=== PATIENT | female | born 1975 | race Caucasian/White ===

== ENCOUNTER 2016-08-14 00:35 | Inpatient (IN) | payer MEDICAID ==
[2016-08-14] MEDS ORDERED: ADENOSINE 6 MG/2 ML SYR IV ONE ×2 (00:56)
[2016-08-14] MEDS ORDERED: SODIUM CHLORIDE 0.9% 10 ML FLUSH FLUSH PRN (00:56)
--- NOTE | 2016-08-14 01:09 | EDPRACDOC ---
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 C/o sob. Denies fever, cough, congestion, cp, abd pain, n/v, changes in bowel or bladder, rash. Pt states her anxiety is increased due to in family Symptoms Started: Reports: Suddenly Relevant History: Reports: Thyroid disease Heart Rate (bpm): 180 Pulse is: Rapid Worsens with: Reports: Anxiety Associated signs & symptoms: Reports: Dyspnea Chest Pain Location: Reports: No Pain Pain Quality: Reports: None Pain Radiation: Reports: None ED Past Medical History - History Reviewed Yes Nurses notes reviewed and agree except as marked - Patient Medical History Surgical History: Reports: Cholecystectomy - Social Medical History Smoking Status: Heavy tobacco smoker (5 or more cigarettes/day or daily pipe/ cigar) ETOH: None Substance Abuse: None EDM Review of Systems - Review of Systems Constitutional: No Symptoms Reported. negative: Fever, Chills, Weakness, Fatigue, Loss of Appetite Ears: No Symptoms Reported. negative: Pain, Hearing Loss, Drainage, Ear Pulling Throat: No Symptoms Reported. negative: Pain, Swelling Nose: No Symptoms Reported. negative: Congestion, Bleeding, Discharge, Injection, Swelling, Deformity, Ecchymosis, Tender, Abrasion, Laceration Mouth: No Symptoms Reported. negative: Pain, Drooling Respiratory: Shortness of Breath Cardiovascular: Palpitations Gastrointestinal: No Symptoms Reported. negative: Pain, Constipation, Nausea, Vomiting, Diarrhea, Melena, Formula Intolerance Genitourinary: No Symptoms Reported. negative: Dysuria, Hematuria, Frequency, Discharge, Bleeding, Testicular Pain, Neurological: No Symptoms Reported. negative: Headache, Dizziness, Seizure, Numbness, Weakness, Speech Difficulty, Gait Difficulty Musculoskeletal: No Symptoms Reported. negative: Neck, Chestwall, Ribs, Back, Shoulder, Arm, Elbow, Forearm, Wrist, Hand, Pelvis, Hip, Femur, Knee, Leg, Ankle , Foot Integumentary: No Symptoms Reported. negative: Itching, Rash, Bruising, Wound Allergic/Immunologic: No Symptoms Reported. negative: Hives, Itching Hematologic: No Symptoms Reported. negative: Lymphadenopathy, Easy Bruising, Easy Bleeding Psychiatric: Anxiety, Insomnia. negative: Depression, Hallucinations, Suicidal - Physical Exam Constitutional: Alert, Distress (mild) Oriented to: Time, Person, Place Last recorded Vital Signs: Oxygen Pulse Oxygen Saturation O2 Device Oxygen Flow Rate Fraction of Inspired Oxygen ( FIO2) - HEENT Head: Normal ( normocephalic) Eye Exam: Normal (PERRL, EOMI, Sclera white) Neck: Normal (FROM, trachea at midline) - Respiratory/Cardiovascular Respiratory: Normal - CTA (BBS clear to auscultation without adventitious sounds ) Cardiovascular: Tachycardia - GI Auscultation: Normal (NABS) Palpation: Normal (Soft,No rebound or guarding, non distended) Tenderness: Non tender - Musculoskeletal Back: Normal (Non-Tender) Extremities: Normal (Normal tone, Pulses 2+ No cyanosis or edema, FROM) - Integumentary Skin: Normal, Warm, Dry Lymphatics: Normal (no adenopathy) - Neurologic Memory Impaired: Normal Motor Function: Normal (Normal tone, Pulses 2+ No cyanosis or edema, FROM) Mood Description: Anxious Perception: Normal - Differential Diagnosis PSVT, Sinus tachycardia, Anxiety/Panic attack - Results 08/14/16 01:00 08/14/16 01:00 08/14/16 03:30 Laboratory Results - last 24 hr 08/14/16 08/14/16 08/14/16 01:00 01:00 01:00 WBC 11.3 H RBC 5.15 Hgb 15.4 Hct 46.9 MCV 91 MCH 29.9 MCHC 32.9 L RDW 14.5 Plt Count 337 MPV 7.7 Neut % (Auto) 64.6 Lymph % (Auto) 25.8 [place] % (Auto) 7.9 Eos % (Auto) 0.8 Baso % (Auto) 0.9 Absolute Neuts (auto) 7.23 Absolute Lymphs (auto) 2.83 PT 10.1 INR 1.0 APTT 25.0 Sodium 141 Potassium 3.9 Chloride 107 Carbon Dioxide 18 L Anion Gap 20 H BUN 12 Creatinine 0.90 Estimated GFR (MDRD) > 60 Glucose 107 H Calculated Osmolality 271 Calcium 9.3 Total Bilirubin 0.7 AST 36 ALT 45 Alkaline Phosphatase 79 Troponin I < 0.01 Total Protein 7.9 Albumin 4.3 - EKG EKG #1 Initial EKG Time: 01:03 Rate: bpm: 192 [place]: Normal Rhythm: PSVT Block: None ST: Normal EKG #2 Initial EKG Time: 01:04 Rate: bpm: 127 [place]: Normal Rhythm: ST Block: None ST: Nonsp EKG #3 Initial EKG Time: 01:06 Rate: bpm: 111 [place]: Normal Rhythm: ST Block: None ST: Nonsp - Diagnostic Imaging Chest Image interpreted by: Radiologist IMPRESSION: Borderline cardiomegaly. No localizing pulmonary process. - Additional Information Additional Information: Pt stood to use bedside toilet and heart rate returned to 150. - Departure Disposition: Admit IP To This Hospital Condition: Stable Final Diagnosis: Supraventricular tachycardia Education/Counseling Given To: Patient Education/Counseling Given Regarding: Diagnosis, Treatment Decision to Admit Time: 02:45 (Dr Antony called Dr Aponte for admission consult) Decision to admit date: 08/14/16 Decision to admit: from ED
[2016-08-14] MEDS ORDERED: NS 1,000 ML IV ONE (01:10)
[2016-08-14 01:19] VITALS: BMI 68.6
[2016-08-14 01:22] LABS: AUTOMATED BASOPHIL 0.9 % (0-2); AUTOMATED EOSINOPHIL 0.8 % (0-5); AUTOMATED LYMPH 25.8 % (17-44); AUTOMATED MONOCYTE 7.9 % (3-10); AUTOMATED NEUTROPHIL 64.6 % (45-76); MPV 7.7 fL (7.4-10.4)
[2016-08-14 01:31] LABS: BLOOD UREA NITROGEN 12 MG/DL (7-17); CALCIUM 9.3 MG/DL (8.4-10.2); CALCULATED OSMOLALITY 271 MOs/Kg (270-290); CHLORIDE 107 mEq/L (98-107); GLUCOSE 107 MG/DL (70-99); SODIUM LEVEL 141 mEq/L (137-146); TOTAL PROTEIN 7.9 G/DL (6.3-8.2)
--- NOTE | 2016-08-14 01:57 | DIRPT ---
CLINICAL DATA: Palpitations, dizziness and shortness of breath. Onset today. EXAM: PORTABLE CHEST 1 VIEW COMPARISON: 04/15/2011 FINDINGS: Heart upper limits normal in size with left ventricular configuration. No consolidation, pulmonary edema, pleural effusion or pneumothorax. Detailed evaluation limited by soft tissue attenuation from body habitus and portable technique. IMPRESSION: Borderline cardiomegaly. No localizing pulmonary process. Electronically Signed By: Alis Barron M.D. On: 08/14/2016 01:54
[2016-08-14] MEDS ORDERED: LORAZEPAM 2 MG/ML VIAL IV ONE (02:06)
[2016-08-14 03:12] LABS: FREE T3 2.52 pg/mL (2.77-5.27); FREE T4 0.85 ng/dL (0.78-2.19)
[2016-08-14 03:26] LABS: hTSH 9.16 uIU/mL (0.5-4.67)
--- NOTE | 2016-08-14 03:57 | HISTPHYS ---
- Chief Complaint heart racing, not feeling well - History of Present Illness PRIMARY CARE PROVIDER: Dr. Keenan TITLE DEPARTMENT MANAGER: Dr. 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 The patient stopped her metoprolol about 5 days ago because she ran out of her medication. She has had severe stress right now because her mother has been dying in Hospice , and in fact just an hour ago. The patient developed episodes of severely fast heart rate today; the episodes were accompanied by significant shortness of breath that lasted only when her heart was racing. In the emergency department, the patient's heart rate was in the 180s to 190s, and EKG revealed SVT. She required 2 doses of adenosine. Onset: today. Duration: intermittent. Location: palpitations in chest. Character: rapid bursts of very fast heart rate. Alleviated by: Nothing. Exacerbated by: Nothing. Associated Symptoms: Shortness of breath. Feels anxious when she has the fast heart rate. Has been sad and tearful due to her mother's . Has had diarrhea lately. Treatments: none at home except usual medications. - Medical History Cardiac History: Reports: SVT (daignosed 08/2016) Musculoskeletal History: Reports: Gout, Other (and low vitamin D levels) Systemic History: Reports: Hyperthyroidism (Corrie's), Hypothyroidism Psychological History: Reports: Anxiety. Denies: Depression - Surgical History Reports: Cholecystectomy - Medictions/Allergies Allergies No Known Allergies Allergy (Verified 08/14/16 01:26) Current Medication List: Reviewed Home Medications Allopurinol 300 mg PO DAILY 08/14/16 Ascorbic Acid [Vitamin C] 1,000 mg PO DAILY 08/14/16 Ergocalciferol (Vitamin D2) [Vitamin D] 50,000 units PO WEEKLY 08/14/16 Metoprolol Tartrate 25 mg PO DAILY 08/14/16 Multivitamin [One Daily] 1 each PO DAILY 08/14/16 Norgestrel-Ethinyl Estradiol [Cryselle] 1 each PO DAILY 08/14/16 Thyroid,Pork [[place] Thyroid] 120 mg PO DAILY 08/14/16 - Family History Reports: Hypertension (Parents), Diabetes (Aunt: type 1. Mother: type 2.), Cancer (Mother: breast. Father: esophageal. PGGF: colon.), Stroke (MGF and MGM) , Cardiac Disorders (Father: [place]) - Social History Smoking Status: Never smoker Social History: Reports: Alcohol Use (rare). Denies: Substance Use Disorder - Review of Systems GENERAL: No Fever, chills, or diaphoresis. Positive for fatigue/malaise. HEENT: No nasal discharge or bleeding. No throat pain or swelling. No eye pain or eye redness. RESPIRATORY: No cough, wheezing. Positive for shortness of breath. CARDIOVASCULAR: No chest pain. Positive for palpitations. GI: Has had diarrhea lately. No abdominal pain, nausea, vomiting, constipation, or bloody stool. NEUROLOGICAL: No headache or focal weakness. INTEGUMENT: no rashes, itching, or lesions. LYMPHATIC SYSTEM: no lymph node swelling or pain. MUSCULOSKELETAL: no pain or joint swelling. GENITOURINARY: No dysuria or hematuria. ENDOCRINE: No polyuria or polydipsia. HEME: No chronic anemia, bleeding, or easy bruising. - Physical Exam Vital Signs: Initial Vitals Temperature 98.1 F 08/14/16 00:55 Pulse Rate 198 H 08/14/16 00:55 Respiratory Rate 22 08/14/16 00:55 Blood Pressure 177/90 08/14/16 00:55 Pulse Oxygen Saturation 95 08/14/16 00:55 Vital Signs - 24 hr 08/14/16 08/14/16 08/14/16 00:55 00:58 01:13 Temperature 98.1 F Pulse Rate 198 H 199 H 107 Respiratory 22 20 20 Rate Blood Pressure 177/90 154/76 151/97 Pulse Oxygen 95 95 98 Saturation 08/14/16 08/14/16 08/14/16 01:35 01:38 02:18 Temperature Pulse Rate 145 H 107 105 Respiratory 20 20 Rate Blood Pressure 154/80 151/97 Pulse Oxygen 96 95 Saturation 08/14/16 08/14/16 08/14/16 02:23 02:38 03:31 Temperature Pulse Rate 117 111 180 H Respiratory 20 18 Rate Blood Pressure 148/77 127/80 Pulse Oxygen 94 91 Saturation Weight: 173 kg Height: 5'4" BMI: 65.5 - Other Exam Other Exam Findings: GENERAL: Ill-appearing, morbidly obese, in acute distress. HEENT: Normocephalic, atraumatic; pupils equal and round. Nares patent, without discharge or bleeding. No oropharyngeal lesions or erythema. Mucous membranes are dry. Hirsutism noted. NECK: is supple, no masses, trachea midline. Large neck circumference. RESPIRATORY: Clear to auscultation bilaterally. Chest wall movements are symmetric. No use of accessory muscles to breathe. No wheezing, rales, rhonchi. Decreased breath sounds in the bases bilaterally. CARDIOVASCULAR: Normal S1, S2. No murmur, rubs, or gallops. PMI non-displaced. Carotids: no carotid bruits. Tachycardia. DP pulses 2+ bilaterally. GI: soft, nontender, non-distended, normal active bowel sounds. No hepatosplenomegaly. INTEGUMENT: Clean, dry, and intact. No rashes. No lesions. MUSCULOSKELETAL: Moving all extremities. No cyanosis. No clubbing. Edema: non- pitting lymphedema in lower extremities bilaterally. NEUROLOGICAL: Cranial nerves 2-12 grossly intact. Motor 5/5 throughout. Reflexes : 2+ bilaterally. Babinski: toes downgoing bilaterally. Intact Finger to nose. Sensory grossly intact to light touch. Intact rapid alternating movements bilaterally. No pronator drift. PSYCHIATRIC: Fully oriented. Tearful, anxious affect. LYMPHATIC: No cervical lymphadenopathy. No supraclavicular lymphadenopathy. - Lab Results Laboratory Results - last 24 hr 08/14/16 08/14/16 08/14/16 01:00 01:00 01:00 WBC 11.3 H RBC 5.15 Hgb 15.4 Hct 46.9 MCV 91 MCH 29.9 MCHC 32.9 L RDW 14.5 Plt Count 337 MPV 7.7 Neut % (Auto) 64.6 Lymph % (Auto) 25.8 [place] % (Auto) 7.9 Eos % (Auto) 0.8 Baso % (Auto) 0.9 Absolute Neuts (auto) 7.23 Absolute Lymphs (auto) 2.83 PT 10.1 INR 1.0 APTT 25.0 Sodium 141 Potassium 3.9 Chloride 107 Carbon Dioxide 18 L Anion Gap 20 H BUN 12 Creatinine 0.90 Estimated GFR (MDRD) > 60 Glucose 107 H Calculated Osmolality 271 Calcium 9.3 Total Bilirubin 0.7 AST 36 ALT 45 Alkaline Phosphatase 79 Troponin I < 0.01 Total Protein 7.9 Albumin 4.3 TSH Free T4 Free T3 08/14/16 01:00 WBC RBC Hgb Hct MCV MCH MCHC RDW Plt Count MPV Neut % (Auto) Lymph % (Auto) [place] % (Auto) Eos % (Auto) Baso % (Auto) Absolute Neuts (auto) Absolute Lymphs (auto) PT INR APTT Sodium Potassium Chloride Carbon Dioxide Anion Gap BUN Creatinine Estimated GFR (MDRD) Glucose Calculated Osmolality Calcium Total Bilirubin AST ALT Alkaline Phosphatase Troponin I Total Protein Albumin TSH 9.16 H Free T4 0.85 Free T3 2.52 L - Diagnostic Findings EKG #1: 192 beats per minute. Supraventricular tachycardia. Incomplete right bundle branch block. Marked ST abnormality, possible inferior lateral subendocardial injury. ST depressions in leads 1, 2, AVF, V3, V4, V5, and V6. Reviewed EKG personally. EKG #2: 127 beats per minute. Sinus tachycardia. Nonspecific ST and T-wave abnormality. ST depression in leads 2, V3. Reviewed EKG personally. EKG #3: 111 Beats per minute. Sinus tachycardia. Nonspecific ST abnormality. Reviewed EKG personally. Chest x-ray, viewed personally: EXAM: PORTABLE CHEST 1 VIEW COMPARISON: 04/15/2011 FINDINGS: Heart upper limits normal in size with left ventricular configuration. No consolidation, pulmonary edema, pleural effusion or pneumothorax. Detailed evaluation limited by soft tissue attenuation from body habitus and portable technique. IMPRESSION: Borderline cardiomegaly. No localizing pulmonary process. - Assessment (1) Supraventricular tachycardia I47.1 - SUPRAVENTRICULAR TACHYCARDIA Acute Present on Admission: Yes SVT with heart rate in the 190s; required 2 doses of adenosine in the emergency department. Plan: Admit. Telemetry. Restart metoprolol at a higher dose. Cardiology consult. (2) Essential (primary) hypertension I10 - ESSENTIAL (PRIMARY) HYPERTENSION Acute Present on Admission: Yes Plan: Treat with metoprolol. 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 Cycles between hyperthyroid and hypothyroid. Plan: Check thyroid labs. Currently Free T4 is in normal range but on lower end of normal. TSH is elevated. Continue current dosing of thyroid medication. (4) Grief reaction F43.20 - ADJUSTMENT DISORDER, UNSPECIFIED Acute Present on Admission: Yes Patient's mother in hospice one hour before the patient was admitted to the hospital. Patient admits to being very sad and anxious. Plan: Supportive care. Consider ativan during acute phase. Case Care Discussed with: Patient, Family, Nursing Staff
[2016-08-14] MEDS ORDERED: CHAPSTICK LIP BALM ONE (05:00)
[2016-08-14] MEDS ORDERED: Docusate Sodium 100 MG CAP PO PRN (05:58)
[2016-08-14] MEDS ORDERED: Aluminum;Magnesium;Simethicone 30 ML UDC PO PRN (05:58)
[2016-08-14] MEDS ORDERED: TEMAZEPAM 15 MG CAP PO PRN (05:58)
[2016-08-14] MEDS ORDERED: ONDANSETRON HCL 4 MG/2 ML VIAL IV PRN (05:58)
[2016-08-14] MEDS ORDERED: BISACODYL 5 MG TAB PO PRN (05:58)
[2016-08-14] MEDS ORDERED: ACETAMINOPHEN 325 MG SUPP PR PRN (05:58)
[2016-08-14] MEDS ORDERED: SIMETHICONE 80 MG TAB PO PRN (05:58)
[2016-08-14] MEDS ORDERED: BENZONATATE 100 MG PERLES PO PRN (05:58)
[2016-08-14] MEDS ORDERED: ACETAMINOPHEN 325 MG/TAB TABLET PO PRN (05:58)
[2016-08-14] MEDS ORDERED: SENNA CONCENTRATE TAB PO PRN (05:58)
[2016-08-14] MEDS ORDERED: GUAIFEN 100 MG-DEXTROMETH 10 MG PER 5 ML PO PRN (05:58)
[2016-08-14] MEDS ORDERED: PROMETHAZINE 25 MG/ML VIAL IV PRN (05:58)
[2016-08-14] MEDS ORDERED: Vaccine Screening Complete SCH (06:00)
[2016-08-14] MEDS ORDERED: ENOXAPARIN 40 MG/0.4 ML PFS SQ SCH (06:00)
[2016-08-14] MEDS ORDERED: NS 1,000 ML IV SCH (06:00)
[2016-08-14] MEDS: LORAZEPAM 2 MG/ML VIAL IV PRN ×2 (07:30→14:37)
[2016-08-14] MEDS ORDERED: ALLOPURINOL 300 MG TAB PO SCH (09:00)
[2016-08-14] MEDS ORDERED: METOPROLOL (TOPROL-XL) 50 MG TAB PO SCH (09:00)
[2016-08-14] MEDS ORDERED: THYROID 60 MG TAB PO SCH (10:00)
[2016-08-14] MEDS ORDERED: Non-Formulary Medication ITEM (Ascorbic Acid [Vitamin C] 1,000 MG) PO SCH (10:00)
[2016-08-14] MEDS ORDERED: ASCORBIC ACID 500 MG TAB PO SCH (10:00)
[2016-08-14] MEDS ORDERED: VITAMINS, MULTIPLE CAP PO SCH (10:00)
[2016-08-14] MEDS ORDERED: THYROID PORK 120 MG PO SCH (10:00)
[2016-08-14] MEDS ORDERED: Non-Formulary Medication ITEM (Multivitamin [One Daily] 1 EACH) PO SCH (10:00)
[2016-08-14] MEDS ORDERED: NORGESTREL ETHINYL ESTRADIOL PO SCH (10:00)
[2016-08-14] MEDS ORDERED: ERGOCALCIFEROL (VITAMIN D2) 50000 UNITS CAP PO SCH (12:00)
[2016-08-14 12:34] VITALS: BP 127/76; TEMP 98.1
--- NOTE | 2016-08-14 12:57 | PCM.CARDCO ---
Consultation Date: 08/14/16 Requesting Physician: Philip Yan Machine Mover: Hunter Waggoner Consult Reason: Dysrhythmia - History of Present Illness Patient is a pleasant 41-year-old female. Her mother just a few hours ago. 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 She also so 1 of my partners in the office for supraventricular tachycardia issues and was given metoprolol. She mentions to me that in middle of taking care of her mother and running around for her treatments she dropped off on taking the metoprolol and had an episode of palpitations with border to the emergency room. There she was given adenosine x2 when she converted into sinus rhythm. At the time my evaluation she is alert awake oriented in no distress. She obviously is anxious because of the events that have happened in the past 24 hours which essentially is the fact that her mother . She seems like she was close to her mother and to get excellent care for. Chief Complaint: heart racing, not feeling well - Past Medical and Surgical History Cardiac History: Reports: SVT (daignosed 08/2016) Systemic History: Reports: Hyperthyroidism (Corrie's), Hypothyroidism Musculoskeletal History: Reports: Gout, Other (and low vitamin D levels) Psychological History: Reports: Anxiety, Alcoholism (rare). Denies: Depression , Substance Use Disorder Past Surgical History: Reports: Cholecystectomy Allergies No Known Allergies Allergy (Verified 08/14/16 01:26) Home Medications Allopurinol 300 mg PO DAILY 08/14/16 Ascorbic Acid [Vitamin C] 1,000 mg PO DAILY 08/14/16 Ergocalciferol (Vitamin D2) [Vitamin D] 50,000 units PO WEEKLY 08/14/16 Metoprolol Tartrate 25 mg PO DAILY 08/14/16 Multivitamin [One Daily] 1 each PO DAILY 08/14/16 Norgestrel-Ethinyl Estradiol [Cryselle] 1 each PO DAILY 08/14/16 Thyroid,Pork [[place] Thyroid] 120 mg PO DAILY 08/14/16 - Social History Smoking Status: Never smoker Social History: Reports: Alcohol Use (rare). Denies: Substance Use Disorder - Family History Reports: Hypertension (Parents), Diabetes (Aunt: type 1. Mother: type 2.), Cancer (Mother: breast. Father: esophageal. PGGF: colon.), Stroke (MGF and MGM) , Cardiac Disorders (Father: [place]) - Review of Systems Constitutional: No Symptoms Reported. negative: Fever, Chills, Weakness, Fatigue, Loss of Appetite - Physical Exam Constitutional: Alert, Distress (mild) Oriented to: Time, Person, Place Exam: Last Vital Signs Temp 98.1 F 08/14/16 12:10 Pulse 85 08/14/16 12:10 Resp 20 08/14/16 12:10 BP 127/76 08/14/16 12:10 Pulse Ox 97 08/14/16 12:10 Intake & Output 08/13/16 08/14/16 08/14/16 23:59 07:59 15:59 Intake Total 1000 600 Output Total 400 300 Balance 600 300 Patient's weight 173.017 kg - HEENT Head: Normal ( normocephalic) Eye: Normal (PERRL, EOMI, Sclera white) Nose: No Symptoms Reported. negative: Congestion, Bleeding, Discharge, Injection, Swelling, Deformity, Ecchymosis, Tender, Abrasion, Laceration - Respiratory/Cardiovascular Respiratory: Normal - CTA (BBS clear to auscultation without adventitious sounds ) Cardiovascular: Other (S1-S2 regular 2/6 systolic at the apex.) - GI Auscultation: Normal (NABS) Palpation: Normal (Soft,No rebound or guarding, non distended) Tenderness: Non tender - Musculoskeletal Back: Normal (Non-Tender) Extremities: Normal (Normal tone, Pulses 2+ No cyanosis or edema, FROM) - Integumentary Skin: Normal, Warm, Dry Lymphatics: Normal (no adenopathy) - Neurologic Memory Impaired: Normal Mood Description: Anxious Perception: Normal - Other Exam Other Exam Findings: No cyanosis clubbing or pedal edema on the extremity evaluation. Neurological and musculoskeletal examination nonfocal. 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 Her TSH is elevated. (2) Supraventricular tachycardia I47.1 - SUPRAVENTRICULAR TACHYCARDIA Acute Comment: I reassured about findings. She might need some anxiolytics to cope up with the current situation as stress brings about supraventricular tachycardia and palpitations per the history provided by the patient. Also she will need to take metoprolol 25 mg a day on a daily basis. I told her that if she is under significant stress and needs more she could take it twice daily and keep a track of her pulse blood pressure. She will need to get an appointment with my partner in the next couple of weeks to see which strategy she needs to pursue whether it is medical therapy or any intervention such as ablation for supraventricular tachycardia. I discussed this with her at length and she vocalized understanding and concurs. Further recommendations will be made on the follow-up appointments with my partner. She has seen Dr Ga in the past Case Care Discussed with: Patient
[2016-08-14 14:18] VITALS: PULSE 102
--- NOTE | 2016-08-14 15:39 | PCM.DCS92 ---
- Final/Secondary Discharge Diagnosis (1) Supraventricular tachycardia Acute I47.1 - SUPRAVENTRICULAR TACHYCARDIA Present on Admission: Yes Comment: Restarted Toprol-XL. Rate stable for 12 hours. (2) Essential (primary) hypertension Acute I10 - ESSENTIAL (PRIMARY) HYPERTENSION Present on Admission: Yes Comment: Continue Toprol-XL. (3) Grief reaction Acute F43.20 - ADJUSTMENT DISORDER, UNSPECIFIED Present on Admission: Yes Comment: Have written her prescription for Ativan that she can use over the next several days following the of her mother yesterday. 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 Cycles between hyperthyroid and hypothyroid. Plan: Check thyroid labs. Currently Free T4 is in normal range but on lower end of normal. TSH is elevated. Continue current dosing of thyroid medication. (5) Lumbar radiculopathy Acute M54.16 - RADICULOPATHY, LUMBAR REGION Present on Admission: Yes Discharge Disposition: Home Discharge Condition: Improved Cognitive Discharge Status: Unimpaired Fuctional Discharge Status: Independent Physician Follow up/Referrals: Estevan Ga MD [Staff Physician] - 08/28/16 3:45 pm (follow up with Dr. Waggoner ) New Prescriptions: Lorazepam [Ativan] 1 mg PO Q6H PRN #30 tablet PRN Reason: Anxiety Metoprolol Succinate (XL) [Toprol Xl] 50 mg PO DAILY #30 tablet Discharge Home Medication List Allopurinol 300 mg PO DAILY 08/14/16 [History Confirmed 08/14/16 Last Taken 1 Day Ago 300] Ascorbic Acid [Vitamin C] 1,000 mg PO DAILY 08/14/16 [History Confirmed Last Taken 08/13/16] Ergocalciferol (Vitamin D2) [Vitamin D2 (ergocalciferol)] 50,000 units PO WEEKLY 08/14/16 [History Confirmed 08/14/16 Last Taken Unknown] Lorazepam [Ativan] 1 mg PO Q6H PRN #30 tablet 08/14/16 [Rx Last Taken Unknown] Metoprolol Succinate (XL) [Toprol Xl] 50 mg PO DAILY #30 tablet 08/14/16 [Rx Last Taken Unknown] Multivitamin [One Daily] 1 each PO DAILY 08/14/16 [History Confirmed 08/14/16 Last Taken 08/13/16] Norgestrel-Ethinyl Estradiol [Cryselle-28 Tablet] 1 each PO DAILY 08/14/16 [ History Confirmed 08/14/16 Last Taken 08/13/16] Thyroid,Pork [[place] Thyroid] 120 mg PO DAILY 08/14/16 [History Confirmed Last Taken 08/13/16] O2 Device: Room Air Diet at Discharge: Heart Healthy Activity: No Restrictions Call Office For: Worsening Symptoms - DC Summary Notes Hospital Course Note:: Discharge summary on patient named ANDREA GU admitted to [facility] on 08/14/16 by Philip Yan MD. Date of discharge is []. Ms. Gu is a pleasant 41-year-old white female with history of Corrie's thyroiditis presented to the emergency room with palpitations and fast heart rate. She had previously been on Toprol XL but states this was discontinued by her personal lines account manager and she has been off it for approximately 5 days. She felt tight through her chest as if she could not breathe. Unfortunately just an hour prior to her presentation to the emergency room her mother who had been in hospice . She stated she has been under severe distress over the last several weeks with her mother's decline and has been increasingly anxious. In the emergency room she was found to be in SVT with a heart rate of 180 to 190. She was given 2 doses of adenosine which finally broke her SVT. She was admitted to the hospital under observation care. She was restarted on her Toprol-XL and given Ativan for anxiety. Dr. Waggoner with Cardiology saw her in consultation and recommended continuing medical therapy and felt she was stable for discharge home. We will continue her on the Toprol-XL. I did tell her that she could likely take an extra dose of Toprol-XL if she felt that her heart was racing. I will also give her a prescription for Ativan to help with her grief reaction. She is to follow up with Dr. Ga in the next couple weeks per Cardiology recommendation. Total Time: 45 minutes - Physical Exam Vital Signs: Last Vital Signs Temp 98.1 F 08/14/16 12:10 Pulse 102 08/14/16 15:32 Resp 20 08/14/16 12:10 BP 127/76 08/14/16 12:10 Pulse Ox 97 08/14/16 12:10 Oxygen Pulse Oxygen Saturation 97 O2 Device Room Air Oxygen Flow Rate Fraction of Inspired Oxygen ( FIO2) Constitutional: No apparent distress, Alert, Well nourished, Well appearing Oriented to: Time, Person, Place - HEENT Head: Normal ( normocephalic) Eye: Normal (PERRL, EOMI, Sclera white) Nose: No Symptoms Reported. negative: Congestion, Bleeding, Discharge, Injection, Swelling, Deformity, Ecchymosis, Tender, Abrasion, Laceration - Respiratory/Cardiovascular Respiratory: Normal - CTA (BBS clear to auscultation without adventitious sounds ) Cardiovascular: Normal - GI Auscultation: Normal (NABS) Palpation: Normal (Soft,No rebound or guarding, non distended) Tenderness: Non tender - Musculoskeletal Back: Normal (Non-Tender) Extremities: Normal (Normal tone, Pulses 2+ No cyanosis or edema, FROM) - Integumentary Skin: Normal, Warm, Dry Lymphatics: Normal (no adenopathy) - Neurologic Memory Impaired: Normal Motor Function: Normal Cranial Nerve: Normal Cerebellar: Normal Mood Description: Anxious Thought: Coherent Perception: Normal
[2016-08-14] MEDS ORDERED: ENOXAPARIN 100 MG PFS SQ SCH (18:00)
[2016-08-15] MEDS ORDERED: PNEUMOCOCCAL 0.5 ML VIAL IM ONE (08:00)
== END 2016-08-14 17:39 | disposition home or self-care (01) | DRG 310 ==
LOC: ED 00:35 → PCU 03:14
PROVIDERS: ADMIT Internal Medicine; ATTEND Hospitalist
DX: I47.1 Supraventricular tachycardia (principal); I10 Essential (primary) hypertension; F43.20 Adjustment disorder, unspecified; E06.3 Autoimmune thyroiditis; M54.16 Radiculopathy, lumbar region; M10.9 Gout, unspecified; F41.9 Anxiety disorder, unspecified; Z79.899 Other long term (current) drug therapy
CPT/HCPCS: 36415; 71010; 80053; 84439; 84443; 84481; 84484; 85025; 85610; 85730; 93005; 96361; 96374; 96375; 99284; J0153; J1650; J2060; J3490